=== PATIENT | male | born 1990 | race African-American/Black ===

== ENCOUNTER 2018-10-30 08:54 | Inpatient (IN) | payer MEDICARE, OTHER ==
[2018-10-30 09:51] VITALS: BMI 22.1
--- NOTE | 2018-10-30 10:41 | HP ---
COWS - Scale Resting Pulse: 1= DC 81-100 Sweatin= No chills or Flushing Restless Observation: 1= Difficult to Sit Still Pupil Size: 0= Normal to Room Light Bone or Joint Aches: 0= None Runny Nose/ Eye Tearin= None GI Upset > 30mins: 0= None Tremor Observation: 0= None Yawning Observation: 0= None Anxiety or Irritability: 1=Feels Anxious/Irritable Goose Flesh Skin: 0=Smooth Skin COWS Score: 3 CIWA Score Nausea/Vomitin-No Nausea/No Vomiting Muscle Tremors: None Anxiety: 4-Mod. Anxious/Guarded Agitation: 4-Moderately Restless Paroxysmal Sweats: 1-Minimal Palms Moist Orientation: 0-Oriented Tacttile Disturbances: 0-None Auditory Disturbances: 1-Very Mild Visual Disturbances: 1-Very Mild Sensitivity Headache: 3-Moderate CIWA-Ar Total Score: 14 - Admission Criteria OASAS Guidelines: Admission for Medically Managed Detox: Requires at least one of the followin. CIWA greater than 12 2. Seizures within the past 24 hours 3. Delirium tremens within the past 24 hours 4. Hallucinations within the past 24 hours 5. Acute intervention needed for co occurring medical disorder 6. Acute intervention needed for co occurring psychiatric disorder 7. Severe withdrawal that cannot be handled at a lower level of care (continued vomiting, continued diarrhea, abnormal vital signs) requiring intravenous medication and/or fluids 8. Admission [facility] Allergies/Adverse Reactions: Allergies Allergy/AdvReac Type Severity Reaction Status Date / Time No Known Allergies Allergy Verified 10/30/18 09:30 History of Present Illness: pt here requesting assistance w/ pcpc and cocaine use " I use $#% everything " . cocaine use " I can't tell you " , first use 2009 . pcp use : " a bag here and there " etoh : " here and there " , latest use 1 beer yesterday heroin : " it depends on my pain " , reports latest use 2 days ago , current symptoms as above . Pt is very poor historian 2/2 intoxication , tangential and dissociative , difficult to re-direct and obtain information . tobacco 1/2 ppd PMHx : R knee injury @ work 2009 claims while [employer] in [facility] , chronic back pain , ankylosing spondylitis This report was requested by: Molly Monsalve | Reference #: [id number] Others' Prescriptions Patient Name: Kendrick Fortune Date: 1990 Address: [address] [place] [address] Sex: Male Rx Written Rx Dispensed Drug Quantity Days Supply Prescriber Name 07/19/2018 07/19/2018 tramadol hcl 50 mg tablet 7 Edison Calvert) Exam Limitations: Clinical Condition, Intoxication - Ebola screening Have you traveled outside of the country in the last 21 days: No Have you had contact with anyone from an Ebola affected area: No - Review of Systems Constitutional: See HPI EENT: reports: No Symptoms Reported Respiratory: reports: No Symptoms reported Cardiac: reports: No Symptoms Reported GI: reports: No Symptoms Reported : reports: No Symptoms Reported Musculoskeletal: reports: See HPI Integumentary: reports: No Symptoms Reported Neuro: reports: Headache Endocrine: reports: No Symptoms Reported Psychiatric: reports: Orientated x3, Agitated Patient History - Patient Medical History Hx Anemia: No Hx Asthma: No Hx Chronic Obstructive Pulmonary Disease (COPD): No Hx Cancer: No Hx Cardiac Disorders: No Hx Congestive Heart Failure: No Hx Hypertension: No Hx Hypercholesterolemia: No Hx Pacemaker: No HX Cerebrovascular Accident: No Hx Seizures: No Hx Dementia: No Hx Diabetes: No Hx Gastrointestinal Disorders: No Hx Liver Disease: No Hx Genitourinary Disorders: No Hx Sexually Transmitted Disorders: No Hx Renal Disease (ESRD): No Hx Thyroid Disease: No Hx Human Immunodeficiency Virus (HIV): No Hx Hepatitis C: No Hx Depression: Yes Hx Suicide Attempt: No Hx Bipolar Disorder: No Hx Schizophrenia: No - Patient Surgical History Past Surgical History: No Anesthesia Reaction: No - Smoking Cessation Smoking history: Current every day smoker Have you smoked in the past 12 months: Yes Aproximately how many cigarettes per day: 6 Cigars Per Day: 0 Hx Chewing Tobacco Use: No Initiated information on smoking cessation: No - Substances abused Cocaine Substance route: Inhalation Frequency: Daily Amount used: $50 Age of first use: 13 Date of last use: 10/29/18 Heroin Substance route: Inhalation Frequency: 1-2 times per week Amount used: 1 bag Age of first use: 26 Date of last use: 10/29/18 PCP Substance route: Smoking Frequency: Daily Amount used: 1 blunt Age of first use: 23 Date of last use: 10/29/18 Alcohol Substance route: Oral Frequency: Daily Amount used: 1 pint tayler, beer 16oz Age of first use: 11 Date of last use: 10/29/18 Family Disease History - Family Disease History Family Disease History: Other: Father (ALCOHOLIC, COCAINE) Admission Physical Exam [facility] - Vital Signs Vital Signs: Vital Signs - 24 hr 10/30/18 09:37 Temperature 97.6 F Pulse Rate 96 H Respiratory 17 Rate Blood Pressure 112/71 - Physical General Appearance: Yes: Moderate Distress, Intoxicated, Anxious HEENTM: Yes: EOMI, Normocephalic, Normal Voice Respiratory: Yes: Lungs Clear, Normal Breath Sounds, No Respiratory Distress, No Accessory Muscle Use Neck: Yes: No masses,lesions,Nodules, Trachea in good position Cardiology: Yes: Regular Rhythm, Regular Rate, S1, S2, Tachycardia Abdominal: Yes: Non Tender, Soft Back: Yes: Muscle Spasm Musculoskeletal: Yes: Joint Stiffness (r knee - chronic) Extremities: Yes: Other (decreased AROM r knee) Neurological: Yes: Fully Oriented, Alert, Motor Strength 5/5, Depressed Affect Integumentary: Yes: Warm - Diagnostic (1) Alcohol abuse Current Visit: Yes Status: Acute (2) Cocaine abuse Current Visit: Yes Status: Chronic (3) Nicotine dependence Current Visit: Yes Status: Chronic Qualifiers: Nicotine product type: cigarettes Breathalyzer - Breathalyzer Breathalyzer: 0 Urine Drug Screen - Test Device Lot number: [id number] Expiration date: 06/28/20 - Control Is test valid?: Yes - Results Drug screen NEGATIVE: No Urine drug screen results: PALLAVI-Cocaine, MOP-Opiates Inpatient Rehab Admission - Rehab Decision to Admit Inpatient rehab admission?: No
[2018-10-30] MEDS ORDERED: MELATONIN 5 MG TABLETS PO PRN (10:53)
[2018-10-30] MEDS ORDERED: MAG HYDROX/AL HYDROX/SIMETH 30 ML UNIT-DOSE CUP PO PRN (10:53)
[2018-10-30] MEDS ORDERED: MAGNESIUM CITRATE 300 ML BOTTLE PO PRN (10:53)
[2018-10-30] MEDS ORDERED: MAGNESIUM HYDROX 2400MG/30ML ORAL SUSPENSION 30 ML CUP PO PRN (10:53)
[2018-10-30] MEDS ORDERED: MENTHOL/PHENOL 1 EACH UD MM PRN (10:53)
[2018-10-30] MEDS ORDERED: ACETAMINOPHEN 325 MG TABLET (FP) PO PRN ×2 (10:53)
[2018-10-30] MEDS ORDERED: BISMUTH SUBSALICYLATE 262 MG/15 ML BTL PO PRN (10:53)
[2018-10-30] MEDS ORDERED: NICOTINE POLACRILEX 2 MG GUM BUC PRN (10:53)
[2018-10-30] MEDS ORDERED: diazePAM 5 MG TABLET PO PRN (10:55)
[2018-10-30] MEDS: IBUPROFEN 400 MG TABLET (FP) PO PRN (12:05)
[2018-10-30] MEDS: METHOCARBAMOL 500 MG TABLET PO PRN (12:06)
[2018-10-30] MEDS: diazePAM 5 MG TABLET PO SCH ×2 (15:03→22:50)
--- NOTE | 2018-10-30 17:33 | CONSULT ---
[facility] Psychiatric Consult - Data Date of interview: 10/30/18 Admission source: [facility] Identifying data: First admission to [facility] for this 27 y/o AA male sekf- referred for detoxification (opioid, cocaine, phencyclidine). Interviewed at [address] [place] [address]. Patient is single, a father of one, homeless (snf resident), unemeployed, disabled and supported on SSI benefits. Substance Abuse History: Discussed in this interview. patient confirms current content of [facility] report as follows : Smoking history: Current every day smoker. Have you smoked in the past 12 months: Yes. Aproximately how many cigarettes per day: 6. Cigars Per Day: 0. Hx Chewing Tobacco Use: No. Initiated information on smoking cessation: Yes. 'Breaking Loose' booklet given: . - Substance & Tx. History. Hx Alcohol Use: No. Hx Substance Use: Yes. Substance Use Type: Cocaine, Tranquilizers (PCP). Hx Substance Use Treatment: No. - Substances Abused. Cocaine. Route: SNIFF. Frequency: 1-3 times last 30 days. Amount used: $100. Age of first use: 23. Date of Last Use: . PCP. Route: Smoking. Frequency: 1-3 times last 30 days. Amount used: 2 PULLS. Age of first use: 26 (5 DAYS AGOP FIRST TIME USE). Date of Last Use: 10/21/17 Medical History: Remarkable for bronchial asthma and ankylosing spondylitis. Patient ambulates with a cane. Psychiatric History: Patient admits to one psychiatric hospitalization at [facility] (2018). Diagnosed with MDD and Anxiety Disorder. Mr Fortune indicates that he used to be treated with lamotrigine, gabapentin and hydroxyzine. Past history of OPD care at the [facility] clinic. Non -adherent to medications and aftercare follow-up. Patient denies history of suicide attempts. 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 Additional Comment: Urine drug screen results: PALLAVI-Cocaine, MOP-Opiates. Noted. Mental Status Exam - Mental Status Exam Alert and Oriented to: Time, Place, Person Cognitive Function: Good Patient Appearance: Well Groomed Mood: Nervous, Anxious Affect: Appropriate, Normal Range Patient Behavior: Fatigued, Talkative, Cooperative Speech Pattern: Clear, Appropriate Voice Loudness: Normal Thought Process: Goal Oriented Thought Disorder: Not Present Hallucinations: Denies Suicidal Ideation: Denies Homicidal Ideation: Denies Insight/Judgement: Poor Sleep: Poorly, Difficulty falling asleep Appetite: Good Muscle strength/Tone: Normal Gait/Station: Other (unsteady gait; walks with a cane) Psychiatric Findings - Problem List ([place] 1, 2,3) (1) Cocaine dependence Status: Chronic (2) Nicotine dependence Status: Chronic Qualifiers: Nicotine product type: cigarettes Substance use status: in withdrawal Qualified Code(s): F17.213 - Nicotine dependence, cigarettes, with withdrawal (3) Substance induced mood disorder Status: Suspected (4) Insomnia Status: Chronic - Initial Treatment Plan Initial Treatment Plan: Interviewed in the presence of medical students (with verbal authorization of the patient). Psychoeducation. Sleep hygiene (observed as somnolent during daytime). Detoxification. AA/NA meetings. Falls precautions. Mr Fortune declines to resume medications other than his detoxification regimen. Observation.
[2018-10-30] MEDS: THIAMINE HCL 100 MG TABLET (FP) PO SCH (22:49)
[2018-10-31] MEDS: diazePAM 5 MG TABLET PO SCH ×3 (05:34→22:49)
[2018-10-31] MEDS: METHOCARBAMOL 500 MG TABLET PO PRN ×2 (06:01→23:17)
[2018-10-31 10:08] LABS: HEMOGLOBIN 13.7 GM/dL (11.7-16.9); MCH 28.8 pg (25.7-33.7); MCHC 32.7 g/dl (32.0-35.9); MEAN CELL VOLUME 88.1 fl (80-96); MEAN PLT VOLUME 8.4 fl (7.5-11.1); PLATELET COUNT 246 K/MM3 (134-434); RBC 4.77 M/mm3 (4.00-5.60); RDW 13.8 % (11.9-15.9)
[2018-10-31 10:21] LABS: ALBUMIN 3.8 g/dl (3.4-5.0); BILIRUBIN,TOTAL 0.6 mg/dL (0.2-1); BLOOD UREA NITROGEN 19.5 mg/dL (7-18); CALCIUM 8.9 mg/dL (8.5-10.1); CREATININE 1.1 mg/dL (0.55-1.3); POTASSIUM 4.6 mmol/L (3.5-5.1); TOT PROT 7.1 g/dl (6.4-8.2)
[2018-10-31] MEDS: PRENATAL VITAMINS W/ FOLIC ACID TABLET (FP) PO SCH (11:33)
[2018-10-31] MEDS: IBUPROFEN 400 MG TABLET (FP) PO PRN (12:32)
[2018-10-31] MEDS: hydrOXYzine PAMOATE 25 MG CAPSULE (FP) PO PRN ×2 (12:32→22:56)
[2018-10-31] MEDS: METHYL SALICYLATE/MENTHOL OINT 30 GM TUBE TP SCH ×2 (15:42→22:48)
--- NOTE | 2018-10-31 16:25 | PN ---
[facility] CIWA - CIWA Score Nausea/Vomitin-No Nausea/No Vomiting Muscle Tremors: 3 Anxiety: 3 Agitation: 1-Slight > Activity Paroxysmal Sweats: No Perspiration Orientation: 2-Disoriented Date<2 days Tacttile Disturbances: 0-None Auditory Disturbances: 1-Very Mild Visual Disturbances: 2-Mild Sensitivity Headache: 0-None Present CIWA-Ar Total Score: 12 S COWS - Scale Resting Pulse: 0= IN 80 or Below Sweatin= No chills or Flushing Restless Observation: 1= Difficult to Sit Still Pupil Size: 0= Normal to Room Light Bone or Joint Aches: 2= Severe Diffuse Aches Runny Nose/ Eye Tearin= None GI Upset > 30mins: 0= None Tremor Observation of Outstretched Hands: 2= Slight Tremor Visible Yawning Observation: 1= 1-2x During Session Anxiety or Irritability: 2=Irritable/Anxious Goose Flesh Skin: 3=Piloerection COWS Score: 11 S Progress Note (SOAP) Subjective: Tremors, Body Aches, Interrupted Sleep. Objective: PATIENT A & O X 2 (UNCERTAIN ABOUT CURRENT DAY / DATE). IN NO ACUTE DISTRESS. 10/31/18 16:26 Vital Signs Temperature 97.2 F L 10/31/18 13:21 Pulse Rate 70 10/31/18 13:21 Respiratory Rate 18 10/31/18 13:21 Blood Pressure 115/71 10/31/18 13:21 O2 Sat by Pulse Oximetry (%) Laboratory Tests 10/31/18 10/31/18 10/31/18 07:50 07:50 07:50 WBC 5.0 RBC 4.77 Hgb 13.7 Hct 42.0 MCV 88.1 MCH 28.8 MCHC 32.7 RDW 13.8 Plt Count 246 MPV 8.4 Sodium 140 Potassium 4.6 Chloride 106 Carbon Dioxide 31 Anion Gap 3 L BUN 19.5 H Creatinine 1.1 Est GFR (CKD-EPI)AfAm 104.59 Est GFR (CKD-EPI)NonAf 90.24 Random Glucose 61 L Calcium 8.9 Total Bilirubin 0.6 AST 21 ALT 24 Alkaline Phosphatase 77 Total Protein 7.1 Albumin 3.8 RPR Titer Nonreactive HIV 1&2 Antibody Screen HIV P24 Antigen 10/31/18 07:50 WBC RBC Hgb Hct MCV MCH MCHC RDW Plt Count MPV Sodium Potassium Chloride Carbon Dioxide Anion Gap BUN Creatinine Est GFR (CKD-EPI)AfAm Est GFR (CKD-EPI)NonAf Random Glucose Calcium Total Bilirubin AST ALT Alkaline Phosphatase Total Protein Albumin RPR Titer HIV 1&2 Antibody Screen Negative HIV P24 Antigen Negative LABS NOTED. Assessment: 10/31/18 16:26 WITHDRAWAL SYMPTOMS. Plan: CONTINUE DETOX. ENSURE PO FOR CALORIC SUPPLEMENTATION. INCREASE DAILY PO WATER INTAKE.
[2018-10-31] MEDS: THIAMINE HCL 100 MG TABLET (FP) PO SCH (22:49)
[2018-11-01] MEDS ORDERED: diazePAM 5 MG TABLET PO SCH (06:00)
[2018-11-01 09:47] VITALS: BP 111/74; PULSE 93; TEMP 97.7
[2018-11-01] MEDS: PRENATAL VITAMINS W/ FOLIC ACID TABLET (FP) PO SCH (10:19)
[2018-11-01] MEDS: METHYL SALICYLATE/MENTHOL OINT 30 GM TUBE TP SCH (10:19)
--- NOTE | 2018-11-01 12:50 | DS ---
[facility] Detox Discharge Summary Admission Date: 10/30/18 Discharge Date: 11/01/18 - History Present History: Alcohol Dependence Additional Comments: 27 years old male admitted on 10/30/18 for alcohol withdrawal stabilization feeling better today preferring to go home today alert no acute distress denies suicidal ideation encourage the patient return to [facility] - Physical Exam Results Vital Signs: Vital Signs Temperature 97.7 F 11/01/18 09:47 Pulse Rate 93 H 11/01/18 09:47 Respiratory Rate 18 11/01/18 09:47 Blood Pressure 111/74 11/01/18 09:47 O2 Sat by Pulse Oximetry (%) Pertinent Admission Physical Exam Findings: Vital Signs Temperature 97.7 F 11/01/18 09:47 Pulse Rate 93 H 11/01/18 09:47 Respiratory Rate 18 11/01/18 09:47 Blood Pressure 111/74 11/01/18 09:47 O2 Sat by Pulse Oximetry (%) Laboratory Last Values WBC 5.0 K/mm3 (4.0-10.0) 10/31/18 07:50 RBC 4.77 M/mm3 (4.00-5.60) 10/31/18 07:50 Hgb 13.7 GM/dL (11.7-16.9) 10/31/18 07:50 Hct 42.0 % (35.4-49) 10/31/18 07:50 MCV 88.1 fl (80-96) 10/31/18 07:50 MCH 28.8 pg (25.7-33.7) 10/31/18 07:50 MCHC 32.7 g/dl (32.0-35.9) 10/31/18 07:50 RDW 13.8 % (11.9-15.9) 10/31/18 07:50 Plt Count 246 K/MM3 (134-434) 10/31/18 07:50 MPV 8.4 fl (7.5-11.1) 10/31/18 07:50 Sodium 140 mmol/L (136-145) 10/31/18 07:50 Potassium 4.6 mmol/L (3.5-5.1) 10/31/18 07:50 Chloride 106 mmol/L (98-107) 10/31/18 07:50 Carbon Dioxide 31 mmol/L (21-32) 10/31/18 07:50 Anion Gap 3 MMOL/L (8-16) L 10/31/18 07:50 BUN 19.5 mg/dL (7-18) H 10/31/18 07:50 Creatinine 1.1 mg/dL (0.55-1.3) 10/31/18 07:50 Est GFR (CKD-EPI)AfAm 104.59 10/31/18 07:50 Est GFR (CKD-EPI)NonAf 90.24 10/31/18 07:50 Random Glucose 61 mg/dL (74-106) L 10/31/18 07:50 Calcium 8.9 mg/dL (8.5-10.1) 10/31/18 07:50 Total Bilirubin 0.6 mg/dL (0.2-1) 10/31/18 07:50 AST 21 U/L (15-37) 10/31/18 07:50 ALT 24 U/L (13-61) 10/31/18 07:50 Alkaline Phosphatase 77 U/L (45-117) 10/31/18 07:50 Total Protein 7.1 g/dl (6.4-8.2) 10/31/18 07:50 Albumin 3.8 g/dl (3.4-5.0) 10/31/18 07:50 RPR Titer Nonreactive (NONREACTIVE) 10/31/18 07:50 HIV 1&2 Antibody Screen Negative 10/31/18 07:50 HIV P24 Antigen Negative 10/31/18 07:50 lab noted patient agrees to bring in lab report to primary care provider for lamotrigin and prednison - Treatment Hospital Course: Detox Protocol Followed, Detoxed Safely, Responded well, Discharged Condition Good, Rehab Referral Accepted Patient has Accepted a [facility] - Medication Discharge Medications: Ambulatory Orders Cyclobenzaprine HCl [Flexeril 10 mg] 10 mg PO BID PRN 10/24/17 hydrOXYzine PAMOATE [Vistaril -] 50 mg PO HS 10/24/17 Lamotrigine [Lamictal] 200 mg PO DAILY 10/30/18 - Diagnosis (1) Arthritis Current Visit: Yes Status: Chronic (2) Ambulates with cane Current Visit: Yes Status: Chronic (3) Alcohol abuse Current Visit: Yes Status: Acute (4) Nicotine dependence Current Visit: Yes Status: Chronic Qualifiers: Nicotine product type: cigarettes Substance use status: in withdrawal Qualified Code(s): F17.213 - Nicotine dependence, cigarettes, with withdrawal (5) Substance induced mood disorder Current Visit: Yes Status: Suspected - AMA Did Patient Leave Against Medical Advice: No
[2018-11-02] MEDS ORDERED: diazePAM 5 MG TABLET PO ONE (06:00)
== END 2018-11-01 11:49 | disposition home or self-care (01) | DRG 897 ==
LOC: YASAS 08:54 → Y3N 11:19
PROVIDERS: ADMIT Surgery; ATTEND Surgery
PROC: HZ2ZZZZ Detoxification Services for Substance Abuse Treatment (ICD-10-PCS; principal; 2018-10-30)
DX: F10.230 Alcohol dependence with withdrawal, uncomplicated (principal); F14.20 Cocaine dependence, uncomplicated; F16.20 Hallucinogen dependence, uncomplicated; F17.213 Nicotine dependence, cigarettes, with withdrawal; F19.24 Other psychoactive substance dependence with psychoactive substance-induced mood disorder; F32.9 Major depressive disorder, single episode, unspecified; M12.9 Arthropathy, unspecified; G47.00 Insomnia, unspecified; R26.89 Other abnormalities of gait and mobility; Z99.89 Dependence on other enabling machines and devices
CPT/HCPCS: 36415; 80053; 85027; 86593; 87389